=== PATIENT | female | born 1985 | race Caucasian/White ===

== ENCOUNTER → 2019-03-12 | Day surgery (SDC) | payer OTHER ==
[~2019-03-12] VITALS: Ht 165.1 cm; Wt 140.6 kg
[2019-03-12 07:30] VITALS: BP 130/88
== END | disposition home or self-care (01) ==
LOC: DS 06:51 → OR 09:00 → DS 09:00 → OR 10:00
DX: Z53.8 Procedure and treatment not carried out for other reasons (principal)

== ENCOUNTER → 2019-05-15 | Day surgery (SDC) | payer OTHER | END | disposition home or self-care (01) | LOC: DS 15:04 → OR 05-19 07:30 | DX: Z53.8 Procedure and treatment not carried out for other reasons (principal); D25.0 Submucous leiomyoma of uterus; N92.0 Excessive and frequent menstruation with regular cycle ==